=== PATIENT | female | born 1945 | race Caucasian/White ===

== ENCOUNTER → 2024-05-20 08:38 | Outpatient (REF) | payer MEDICARE, OTHER, SELFPAY | LOC: HWWDC 08:38 | PROVIDERS: ATTENDING PHYSICIAN Family Medicine | DX: Z12.31 Encounter for screening mammogram for malignant neoplasm of breast (principal); M81.0 Age-related osteoporosis without current pathological fracture | CPT/HCPCS: 77063; 77067; 77080 ==

== ENCOUNTER → 2025-06-04 14:42 | Outpatient (REF) | payer MEDICARE, OTHER, SELFPAY | LOC: WDC 14:42 | PROVIDERS: ATTENDING PHYSICIAN Family Medicine | DX: Z12.31 Encounter for screening mammogram for malignant neoplasm of breast (principal) | CPT/HCPCS: 77063; 77067 ==

== ENCOUNTER → 2025-06-10 09:21 | Outpatient (REF) | payer MEDICARE, OTHER, SELFPAY | LOC: WDC 09:21 | PROVIDERS: ATTENDING PHYSICIAN Family Medicine | DX: R92.8 Other abnormal and inconclusive findings on diagnostic imaging of breast (principal) | CPT/HCPCS: 76642 ==

== ENCOUNTER → 2025-07-28 09:48 | Outpatient (REF) | payer MEDICARE, OTHER, SELFPAY | LOC: WDC 09:48 | PROVIDERS: ATTENDING PHYSICIAN Surgery; FAMILY PHYSICIAN Family Medicine | DX: N63.21 Unspecified lump in the left breast, upper outer quadrant (principal) | CPT/HCPCS: 19285; A4648 ==

== ENCOUNTER 2025-07-29 06:44 | Day surgery (SDC) | payer MEDICARE, OTHER, SELFPAY ==
[2025-07-15 14:38] VITALS: BMI 37.7
[2025-07-29 10:25] VITALS: BP 143/54
[2025-07-29 10:35] VITALS: BMI 37.7
[2025-07-29] MEDS: TYLENOL 1000 MG PO (10:39)
[2025-07-29] MEDS: NORMOSOL-R/PLASMALYTE-A 1000 IV (10:39)
[2025-07-29] MEDS: VANCOCIN 530 MG IV (11:00)
--- NOTE | 2025-07-29 13:13 | W.IMMPOSTOP ---
Surgical Immed Post Op Note
-
Primary Surgeon: Mina
Assisting Surgeon: None
Pre-op Diagnosis: Left breast papilloma
Post-op Diagnosis: Same
Procedure Performed: Left localized lumpectomy
Anesthesia Type: TIVA
Specimen / Cultures: Left lumpectomy and margins
Estimated Blood Loss: 4cc
Complications: None
Operative Findings: Reflector and clip in specimen
--- NOTE | 2025-07-29 13:14 | OR.RPT ---
Operative Report
Operative Report
Date of procedure: 07/29/2025
Surgeon: Mina
Preoperative diagnosis: Left breast papilloma with growth
Postoperative diagnosis: Same
Procedure: Left localized lumpectomy
The patient is a 79-year-old female who had previously undergone biopsy of the left breast mass consistent with a benign papilloma. On subsequent imaging she developed an interval change with growth and she presents for complete excision. On the
day prior to the procedure the patient presented to the [place] [facility] and a Dianne reflector was placed at the tumor site. On the day of the procedure the patient presented to the same-day surgical services unit. She was prepped and
verified site and procedure. DVT and antibiotic prophylaxis were provided.
She was taken to the operating room and in the supine position intravenous sedation was delivered. Left breast was prepped and draped in usual sterile fashion and all team members performed an appropriate timeout procedure. Tissues were
anesthetized with 1% lidocaine plain. The Dianne probe was used to isolate the highest signal and a curvilinear incision was made overlying this area. Dissection was carried down to the mass using the cautery and a wide lumpectomy was performed.
Time out of body was noted and the specimen was oriented for the pathologist. Specimen radiography confirmed the presence of the clip reflector and mass within it. Additional margins were harvested for permanent analysis from the posterior,
medial, superior, lateral, inferior, and anterior dimensions. These were oriented as well.
Hemostasis was maintained with the cautery or with 2-0 silk suture ligature. Marcaine 0.5% plain was instilled into all tissues. Hemoclips were placed in the resection cavity and the wound was closed using simple interrupted 2-0 Polysorb on deep
intermediate and subcutaneous tissue and skin was closed with a running subcuticular 4-0 Monocryl with a few simple interrupted Monocryl's externally for extra support. Surgical glue and a sterile compressive dressing were applied. All sponge
needle and instrument counts were correct and the patient was transferred to same-day surgical services for recovery.'([id number])
[2025-07-29 13:22] VITALS: BP 99/45
[2025-07-29 13:30] VITALS: BP 91/77
[2025-07-29 13:45] VITALS: BP 94/60
[2025-07-29 14:00] VITALS: BP 108/57
== END 2025-07-29 14:26 | disposition home or self-care (01) ==
LOC: SDS 06:44
PROVIDERS: ATTENDING PHYSICIAN Surgery; FAMILY PHYSICIAN Family Medicine
DX: D24.2 Benign neoplasm of left breast (principal)
CPT/HCPCS: 19301; 76098; 88305; 88307; 88341; 88342; 88360